=== PATIENT | male | born 1950 | race Caucasian/White ===

== ENCOUNTER → 2018-01-24 | Outpatient (CLI) | payer MEDICARE, OTHER ==
--- NOTE | 2018-01-24 15:44 | US ---
EXAMINATION TYPE: US kidneys/renal and bladder DATE OF EXAM: 01/24/2018 COMPARISON: NONE CLINICAL HISTORY: N18.9 CKD. no symptoms EXAM MEASUREMENTS: Right Kidney: 10.2 x 3.7 x 4.4 cm Left Kidney: 10.6 x 4.4 x 5.5 cm Right Kidney: 0.6cm inferior pole stone seen Left Kidney: 1.0cm cyst seen mid pole Bladder: wnl Bilateral Jets seen: Yes IMPRESSION: 1. Nonobstructing right renal stone. 2. Left renal cyst.
== END ==
LOC: RADUSWWP 14:54
PROVIDERS: ATTEND Internal Medicine
DX: N28.1 Cyst of kidney, acquired (principal); N20.0 Calculus of kidney
CPT/HCPCS: 76770

== ENCOUNTER → 2018-05-20 | Outpatient (CLI) | payer MEDICARE ==
--- NOTE | 2018-05-20 15:05 | XR ---
EXAMINATION TYPE: XR chest 2V DATE OF EXAM: 05/20/2018 COMPARISON: None INDICATION: Cough TECHNIQUE: Frontal and lateral views of the chest are obtained. FINDINGS: The heart size is normal. The pulmonary vasculature is normal. The lungs are clear. IMPRESSION: 1. No acute pulmonary process.
== END | disposition home or self-care (01) ==
LOC: RADXRMAIN 14:37
PROVIDERS: ATTEND Physician Assistant
DX: R05 Cough (principal)
CPT/HCPCS: 71046

== ENCOUNTER 2018-09-18 18:21 | Emergency (ER) | payer MEDICARE ==
[2018-09-18 18:26] VITALS: RESP 18; TEMP 98.2
[2018-09-18] MEDS ORDERED: DIPH,PERTUS(ACELL)TETVAC-LF 0.5 ML VIAL IM ONE (18:34)
--- NOTE | 2018-09-18 19:03 | XR ---
EXAMINATION TYPE: XR hand complete LT DATE OF EXAM: 09/18/2018 COMPARISON: NONE HISTORY: Fell off a ladder. Pain. TECHNIQUE: 3 views FINDINGS: There is narrowing of the third MP joint space with spur formation. There is narrowing and spurring at the DIP joint of the index finger. Metacarpals are intact. I see no fracture. Carpal bone s are intact. There is some vascular calcification. 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 No fracture.
--- NOTE | 2018-09-18 19:04 | XR ---
EXAMINATION TYPE: XR shoulder complete RT DATE OF EXAM: 09/18/2018 COMPARISON: NONE HISTORY: Pain. Fall. TECHNIQUE: 3 views FINDINGS: I see no fracture nor dislocation. Glenohumeral joint is intact. IMPRESSION: Negative right shoulder exam.
--- NOTE | 2018-09-18 19:05 | XR ---
EXAMINATION TYPE: XR ribs RT w pa chest xray DATE OF EXAM: 09/18/2018 COMPARISON: NONE HISTORY: Pain. TECHNIQUE: 5 views FINDINGS: Heart and mediastinum are normal. Lungs are clear. There is no sign of pleural effusion or pneumothorax. Right ribs appear intact. IMPRESSION: Normal chest. Normal right ribs.
[2018-09-18] MEDS ORDERED: LIDOCAINE 1% INJ 10MG/ML (20 ML MDV) SQ ONE (19:07)
[2018-09-18] MEDS ORDERED: KETOROLAC 30 MG/ML 1 ML VIAL IM STA (19:07)
--- NOTE | 2018-09-18 19:41 | ED ---
Fall HPI - General Chief Complaint: Fall Stated Complaint: Fall off ladder Time Seen by Provider: 09/18/18 18:33 Source: patient Mode of arrival: wheelchair - History of Present Illness Initial Comments: Patient is a 68-year-old male presents emergency Department after fall from a ladder. Patient reports working up a ladder approximately 4 feet off the ground. Patient reports losing balance and falling on the right side of his body, especially the shoulder. Patient reports a laceration to his nose with states that from his last period patient also reports right shoulder pain that is alleviated at rest and is exacerbated with shoulder flexion and extension and abduction. Patient denies any numbness or tingling. Patient also reports right flank pain. Patient denies loss of consciousness at time of incident, syncope, nausea, vomiting, headache, lightheadedness, dizziness, chest pain, chest tightness or blurry vision. Patient is unaware of his tetanus status. - Related Data Allergies Allergy/AdvReac Type Severity Reaction Status Date / Time [facility] Allergy Unknown Verified 09/18/18 18:26 Review of Systems ROS Statement: Those systems with pertinent positive or pertinent negative responses have been documented in the HPI. ROS Other: All systems not noted in ROS Statement are negative. Past Medical History Past Medical History: Coronary Artery Disease (CAD), Diabetes Mellitus, Hy perlipidemia, Thyroid Disorder History of Any Multi-Drug Resistant Organisms: None Reported Past Surgical History: Appendectomy, Coronary Bypass/CABG, Hernia Repair Additional Past Surgical History / Comment(s): carotid endarectomy Past Psychological History: No Psychological Hx Reported Smoking Status: Former smoker Past Alcohol Use History: None Reported Past Drug Use History: None Reported General Exam Limitations: no limitations General appearance: alert, in no apparent distress Head exam: Present: normocephalic, normal inspection. Absent: atraumatic (Avulsion on midline of the nose measuring 0.5 cm 0.5 cm. negative Burleson sign, raccoon eyes or hemotympanum) Eye exam: Present: normal appearance, PERRL, EOMI Pupils: Present: normal accommodation ENT exam: Present: normal exam Neck exam: Present: normal inspection, tenderness (Pain along the right trapezius exacerbated with left rotation or flexion of the neck.), full ROM Respiratory exam: Present: normal lung sounds bilaterally. Absent: respiratory distress, rhonchi Cardiovascular Exam: Present: regular rate, normal rhythm, normal heart sounds Extremities exam: Present: normal inspection, normal capillary refill, other (Laceration on the posterior aspect of the first digit of the right hand.) Back exam: Present: normal inspection, full ROM, CVA tenderness (R) (Mid axillary line tenderness) Neurological exam: Present: alert, oriented X3 Psychiatric exam: Present: normal affect, normal mood Skin exam: Present: warm, intact, normal color Course Vital Signs 09/18/18 18:23 Temperature 98.2 F Pulse Rate 77 Respiratory 18 Rate Blood Pressure 146/87 O2 Sat by Pulse 99 Oximetry Procedures - Laceration Laceration #1 Consent Obtained: verbal consent Indication: laceration Site: hand Size (cm): 2 Description: linear Depth: simple, single layer Anesthetic Used: lidocaine 1% Anesthesia Technique: local infiltration Amount (mls): 10 Pre-repair: irrigated extensively Type of Sutures: nylon Size of Sutures: 4-0 Number of Sutures: 5 Technique: simple, interrupted Patient Tolerated Procedure: well Medical Decision Making - Medical Decision Making Patient is a 68-year-old male presents emergency department after fall. Chest and shoulder x-ray is negative for acute bony fracture and dislocations, pleural effusion or pneumothorax. X-ray of the right hand is negative for foreign bodies at the site of laceration. Patient was administered tetanus prophylaxis. Patient advised to return to emergency department for suture removal after 10 days or sooner if symptoms worsen. Strict return parameters were discussed thoroughly with patient. Patient advised to follow-up with orthopedics. Case discussed with physician. Disposition Clinical Impression: Fall Disposition: HOME SELF-CARE Condition: Stable Instructions (If sedation given, give patient instructions): Fall Prevention for Older Adults (ED) Additional Instructions: Please return to the emergency department after 10 days for suture removal or sooner if symptoms worsen. Please follow-up with orthopedics. Use ice packs on areas of trauma to minimize pain and swelling. Is patient prescribed a controlled substance at d/c from ED?: No Referrals: Ricki Noland MD [Primary Care Provider] - 1-2 days Salvador Patrick DO [Doctor of Osteopathic Medicine] - 1-2 days Time of Disposition: 20:29
[2018-09-18 20:52] VITALS: BP 136/71; PULSE 60
== END 2018-09-18 20:40 | disposition home or self-care (01) ==
LOC: EC 18:21
DX: S61.011A Laceration without foreign body of right thumb without damage to nail, initial encounter (principal); S01.21XA Laceration without foreign body of nose, initial encounter; M25.511 Pain in right shoulder; R10.9 Unspecified abdominal pain; I25.10 Atherosclerotic heart disease of native coronary artery without angina pectoris; Z95.1 Presence of aortocoronary bypass graft; Z87.891 Personal history of nicotine dependence; Z88.8 Allergy status to other drugs, medicaments and biological substances; Z23 Encounter for immunization; W11.XXXA Fall on and from ladder, initial encounter; Y92.009 Unspecified place in unspecified non-institutional (private) residence as the place of occurrence of the external cause
CPT/HCPCS: 71101; 73030; 73130; 90715; 99283; 12001; 96372; 90471; J2001; J1885

== ENCOUNTER → 2019-11-12 | Outpatient (CLI) | payer MEDICARE | END | disposition home or self-care (01) | LOC: LABWHC1 09:06 | PROVIDERS: ATTEND Family Medicine | DX: Z20.828 Contact with and (suspected) exposure to other viral communicable diseases (principal) | CPT/HCPCS: U0003; C9803 ==

== ENCOUNTER → 2020-12-22 | Outpatient (CLI) | payer MEDICARE | END | disposition home or self-care (01) | LOC: LABWHC1 10:34 | PROVIDERS: ATTEND Family Medicine | DX: K52.9 Noninfective gastroenteritis and colitis, unspecified (principal) | CPT/HCPCS: 36415; 82272; 83630; 87045; 87046; 87328; 87329 ==

== ENCOUNTER 2021-01-06 09:58 | Emergency (ER) | payer MEDICARE ==
[2021-01-06 10:08] VITALS: BP 146/71; PULSE 64; RESP 18; TEMP 97.9
--- NOTE | 2021-01-06 10:36 | ED ---
General Adult HPI - General Chief complaint: Urogenital Stated complaint: trouble urinating Time Seen by Provider: 01/06/21 10:13 Source: patient Mode of arrival: ambulatory Limitations: no limitations - History of Present Illness Initial comments: Dictation was produced using [employer] dictation software. please excuse any grammatical, word or spelling errors. Chief Complaint: 70-year-old male with history of prostate disease presents with urinary retention History of Present Illness: Is a 70-year-old male has past medical history of enlarged prostate. Patient seen urologist in [place]. They moved here couple years ago. Patient states that since yesterday's been having difficulty urinating. He states that he has to strain to get his urine out. Denies any dysuria. No pain. States he has not seen a urologist in 3-4 years. No nausea vomiting. No abdominal pain. The ROS documented in this emergency department record has been reviewed and confirmed by me. Those systems with pertinent positive or negative responses have been documented in the HPI. All other systems are other negative and/or noncontributory. PHYSICAL EXAM: General Impression: Alert and oriented x3, not in acute distress HEENT: Normocephalic atraumatic, extra-ocular movements intact, pupils equal and reactive to light bilaterally, mucous membranes moist. Cardiovascular: Heart regular rate and rhythm Chest: Able to complete full sentences, no retractions, no tachypnea Abdomen: abdomen soft, non-tender, non-distended, no organomegaly Musculoskeletal: Pulses present and equal in all extremities, no peripheral edema Motor: no focal deficits noted Neurological: CN II-XII grossly intact, no focal motor or sensory deficits noted Skin: Intact with no visualized rashes Psych: Normal affect and mood ED course: 70-year-old male with chief complaint of urinary retention. He has history of prostate disease. Vital Signs upon arrival are within acceptable limits. Bladder scan showed 70 mL. Urinalysis unremarkable. Patient urinated postvoid residual 75. Patient's medications are reviewed. Patient safe candidate for Flomax. Patient given prescription for Flomax and outpatient referral to urologist. Return precautions discussed. - Related Data Home Medications Medication Instructions Recorded Confirmed DULoxetine HCL [Cymbalta] 60 mg PO DAILY 09/18/18 09/18/18 Fenofibrate 160 mg PO DAILY 09/18/18 09/18/18 Omeprazole 20 mg PO DAILY 09/18/18 09/18/18 allopurinoL [Zyloprim] 100 mg PO DAILY 09/18/18 09/18/18 Previous Rx's Medication Instructions Recorded Tamsulosin [Flomax] 0.4 mg PO DAILY #6 cap 01/06/21 Allergies Allergy/AdvReac Type Severity Reaction Status Date / Time dulaglutide [From [facility]] Allergy Unknown Verified 09/18/18 18:26 Review of Systems ROS Statement: Those systems with pertinent positive or pertinent negative responses have been documented in the HPI. ROS Other: All systems not noted in ROS Statement are negative. Past Medical History Past Medical History: Coronary Artery Disease (CAD), Diabetes Mellitus, Hyperlipidemia, Thyroid Disorder History of Any Multi-Drug Resistant Organisms: None Reported Past Surgical History: Appendectomy, Coronary Bypass/CABG, Hernia Repair Additional Past Surgical History / Comment(s): carotid endarectomy Past Psychological History: No Psychological Hx Reported Smoking Status: Former smoker Past Alcohol Use History: None Reported Past Drug Use History: None Reported General Exam Limitations: no limitations Course Vital Signs 01/06/21 10:05 Temperature 97.9 F Pulse Rate 64 Respiratory 18 Rate Blood Pressure 146/71 O2 Sat by Pulse 99 Oximetry Medical Decision Making - Lab Data Lab Results 01/06/21 Range/Units 10:41 Urine Color Yellow Urine Appearance Clear (Clear) Urine pH 7.0 (5.0-8.0) Ur Specific [place] 1.014 (1.001-1.035) Urine Protein Negative (Negative) Urine Glucose (UA) Negative (Negative) Urine Ketones Negative (Negative) Urine Blood Negative (Negative) Urine Nitrite Negative (Negative) Urine Bilirubin Negative (Negative) Urine Urobilinogen <2.0 (<2.0) mg/dL Ur Leukocyte Esterase Negative (Negative) Disposition Clinical Impression: Urinary retention Disposition: HOME SELF-CARE Condition: Good Instructions (If sedation given, give patient instructions): Urinary Retention in Men (ED) Additional Instructions: comeback to ER if you do not urinate in 4-6 hours or are having worsening trouble urinating Prescriptions: Tamsulosin [Flomax] 0.4 mg PO DAILY #6 cap Is patient prescribed a controlled substance at d/c from ED?: No Referrals: Alex Dominguez MD [STAFF PHYSICIAN] - 1-2 days
[2021-01-06 11:00] LABS: Appearance,Urine Clear (Clear); Bilirubin,Urine Negative (Negative); Blood,Urine Negative (Negative); Color,Urine Yellow; Glucose,Urine (UA) Negative (Negative); Ketones,Urine Negative (Negative); Leukocyte Esterase,Urine Negative (Negative); Nitrite,Urine Negative (Negative); Protein,Urine Negative (Negative); Specific Gravity,Urine 1.014 (1.001-1.035); Urobilinogen,Urine <2.0 mg/dL (<2.0)
== END 2021-01-06 11:38 | disposition home or self-care (01) ==
LOC: EC 09:58
DX: R33.8 Other retention of urine (principal); E11.9 Type 2 diabetes mellitus without complications; E78.5 Hyperlipidemia, unspecified; Z87.891 Personal history of nicotine dependence; Z90.49 Acquired absence of other specified parts of digestive tract; Z88.8 Allergy status to other drugs, medicaments and biological substances; Z79.899 Other long term (current) drug therapy
CPT/HCPCS: 51798; 81003; 99284

== ENCOUNTER → 2021-01-17 | Outpatient (CLI) | payer MEDICARE ==
--- NOTE | 2021-01-17 15:52 | XR ---
EXAMINATION TYPE: XR KUB DATE OF EXAM: 01/17/2021 3:45 PM CLINICAL HISTORY: Right flank pain. TECHNIQUE: 3 supine KUB images of the abdomen are obtained. COMPARISON: None. FINDINGS: Scattered gas is seen in non-distended small bowel loops. Gas and fecal material is seen in non-distended colon. Bilateral renal calculi identified, approximately 5 small left-sided stones up to 5 mm over the left 12th rib mid pole level laterally and 6 to 8 scattered right-sided renal calculi up to 6 to 7 mm lowe r pole of the right kidney. There is aortobiiliac stent graft. Surgical clips bilateral groin region. Lung bases are not included . Symmetric moderate axial joint space loss in both hips. Overall nonobstructive bowel gas pattern. Impression: Bilateral nephrolithiasis.
== END | disposition home or self-care (01) ==
LOC: LABWHC1 15:05
PROVIDERS: ATTEND Urology
DX: N20.0 Calculus of kidney (principal)
CPT/HCPCS: 36415; 74018; 84153

== ENCOUNTER → 2024-03-26 | Outpatient (CLI) | payer MEDICARE ==
--- NOTE | 2024-03-26 11:17 | XR ---
EXAMINATION TYPE: XR lumbosacral spine min 4V DATE OF EXAM: 03/26/2024 11:10 AM COMPARISON: None. CLINICAL INDICATION: Male, 73 years old with history of M54.41 LUMBAGO WITH SCIATICA, RIGHT SIDE, fal l, pain TECHNIQUE: 3 view(s) obtained. FINDINGS: There are 5 lumbar vertebral bodies. Pedicles are intact. Aortic stent seen extending into the iliac vessels. Multiple calcifications overlying right kidney. Colonic bowel gas is present. No mass effect 7. No spondylolytic defects are evident. Some degenerative changes and narrowing of disc height is prese nt L5-S1. Large anterior vertebral body spurs are present within the lumbar spine. IMPRESSION: 1. Degenerative disc changes L5-S1. 2. Aortic stenting [facility], , 03/26/2024 11:15 AM
== END | disposition home or self-care (01) ==
LOC: RADXRMAIN 10:31
PROVIDERS: ATTEND Family Medicine
DX: M51.360 Other intervertebral disc degeneration, lumbar region with discogenic back pain only (principal); M54.41 Lumbago with sciatica, right side
CPT/HCPCS: 72110